=== PATIENT | male | born 1960 | race Caucasian/White ===

== ENCOUNTER 2020-07-31 18:47 | Emergency (ER) | payer MEDICARE, OTHER ==
[~2020-07-31] VITALS: Ht 165.1 cm; Wt 65.0 kg
[~2020-07-31 18:47] MED LIST: BACL-141 PO; CLOP75TA33 PO; DOCU-138 PO; FOLI-43 PO; HYDR-4134 PO; LABE100T5 PO; LACT10SO7 PO; LIP40 PO; MORP15TA67 PO; NIFE30TA94 PO; PANT40TA51 PO; TAMS0.4C31 PO
[2020-07-31] MEDS ORDERED: MORPHINE SULFATE 4 MG/ML CPJ (NOT FOR IM USE) IV STA (19:17)
[2020-07-31] MEDS ORDERED: ONDANSETRON HCL 4MG/2ML INJ IV STA (19:17)
[2020-07-31 20:08] LABS: CHLORIDE 97 mEq/L (98-107)
[2020-07-31 20:11] LABS: INR 1.2; PROTHROMBIN TIME 12.8 sec (9.6-11.0)
[2020-07-31 20:14] LABS: HEMATOCRIT. 45.6 % (42.0-52.0); HEMOGLOBIN. 15.5 g/dL (14.0-18.0); MEAN CORPUSCULAR VOLUME 96.9 fL (80.0-94.0); MEAN PLATELET VOLUME 8.5 fl (7.4-10.4); PLATELET 87 x1000/uL (130-400); RED CELL DISTRIBUTION WIDTH 12.5 % (11.6-14.6)
[2020-07-31 20:53] LABS: PLATELET ESTIMATE DECREASED
[2020-07-31] MEDS ORDERED: SODIUM CHLORIDE 0.9% 1,000 ML IV ONE (22:15)
[2020-08-01 00:17] VITALS: BP 129/90
== END 2020-08-01 00:22 | disposition home or self-care (01) ==
LOC: ER 18:47
DX: R51.9 Headache, unspecified (principal); E86.0 Dehydration; K70.10 Alcoholic hepatitis without ascites; F10.20 Alcohol dependence, uncomplicated; Y90.9 Presence of alcohol in blood, level not specified
CPT/HCPCS: 36415; 70450; 80053; 85025; 85610; 93005; 96361; 96374; 96375; 99285; J2270; J2405; J7030

== ENCOUNTER 2023-04-12 03:57 | Inpatient (IN) | payer MEDICARE, MEDICAID ==
[~2023-04-12] VITALS: Ht 175.3 cm; Wt 77.1 kg
[2023-04-12] VITALS (9 sets, daily range): BP systolic 101–120; BP diastolic 61–72; PULSE 72–98; RESP 18–20; TEMP 97.7–98.5; O2SAT 96
[~2023-04-12 03:57] MED LIST changes: +FINA5TAB11 PO; -LABE100T5 PO; +LABE100T9 PO; +MIRA50TA PO; +NIFE-71 PO; -NIFE30TA94 PO
[2023-04-12 05:28] LABS: BASOPHILS % 1.1 % (0.0-2.0); EOSINOPHILS % 1.7 % (0.0-5.0); HEMATOCRIT. 46.5 % (42.0-52.0); HEMOGLOBIN. 16.4 g/dL (14.0-18.0); LYMPHOCYTES % 23.9 % (20.0-50.0); MEAN CORPUSCULAR HGB CONC 35.2 g/dL (31.0-37.0); MEAN CORPUSCULAR VOLUME 93.8 fL (80.0-94.0); MEAN PLATELET VOLUME 7.2 fl (7.4-10.4); MONOCYTES % 8.9 % (2.0-8.0); NEUTROPHILS % 64.4 % (40.0-76.0); PLATELET 132 x1000/uL (130-400); RED BLOOD CELL COUNT 4.96 mill/uL (4.7-6.1); RED CELL DISTRIBUTION WIDTH 13.5 % (11.6-14.6); WHITE BLOOD COUNT 8.2 x1000/uL (4.5-11.0)
[2023-04-12 05:29] LABS: CHLORIDE 102 mEq/L (98-107); INDEX HEMOLYSI 1 (1-3); INDEX ICTERIC 2 (1-4); INDEX LIPEMIC 1 (1-3); SODIUM 137 mEq/L (136-145)
[2023-04-12 05:40] LABS: ALANINE AMINOTRANSFERASE 16 IU/L (13-61); ALBUMIN 3.8 g/dL (3.4-5.0); ASPARTATE AMINOTRANSFERASE 19 IU/L (15-37); BILIRUBIN TOTAL 2.8 mg/dL (0.1-1.0); CALCIUM 9.2 mg/dL (8.5-10.1); CARBON DIOXIDE 29 mEq/L (21-32); ETHANOL BLOOD < 10 mg/dL (<10); GLUCOSE 122 mg/dL (70-105); NT PRO B-TYPE NATRIURETIC PEP 1147 pg/mL (5-125); PROTEIN TOTAL 8.7 g/dL (6.0-8.3); TROPONIN I HIGH SENSITIVITY 17 ng/L (<78); UREA NITROGEN BLOOD 13 mg/dL (7-21)
[2023-04-12 05:56] LABS: POTASSIUM 2.6 mEq/L (3.5-5.1)
[2023-04-12] MEDS ORDERED: POTASSIUM CHLORIDE 20MEQ/PACKET PO NR (06:00)
[2023-04-12] MEDS ORDERED: ONDANSETRON HCL 4MG/2ML INJ IV PRN (11:30)
[2023-04-12] MEDS ORDERED: LORAZEPAM 0.5MG TABLET PO PRN (11:30)
[2023-04-12] MEDS ORDERED: ENOXAPARIN 40MG/0.4ML SYR SUBCUT SCH ×2 (11:30→11:51)
[2023-04-12] MEDS ORDERED: IPRATROPIUM/ALBUTEROL 0.5-3(2.5)MG/3ML NEB HHN PRN (11:30)
[2023-04-12] MEDS ORDERED: CLONIDINE 0.1MG TABLET PO PRN (11:30)
[2023-04-12] MEDS ORDERED: ACETAMINOPHEN 325MG TABLET PO PRN ×2 (11:30)
[2023-04-12] MEDS ORDERED: DOCUSATE SODIUM 100MG CAPSULE PO PRN (11:30)
[2023-04-12] MEDS ORDERED: DEXTROSE 50% WATER 50ML SYRINGE IV PRN (12:30)
[2023-04-12] MEDS ORDERED: NALOXONE HCL 0.4MG/ML VIAL IV PRN (13:00)
[2023-04-12 13:42] LABS: PHOSPHORUS 3.3 mg/dL (2.5-4.9); T4 FREE 1.62 ng/dL (0.76-1.46); THYROID STIMULATING HORMONE 3.4 uIU/mL (0.36-3.74)
[2023-04-12] MEDS ORDERED: ENOXAPARIN 80MG/0.8ML SYR SUBCUT NR (14:00)
[2023-04-12] MEDS: FUROSEMIDE 40MG/4ML VIAL IVP SCH (15:08)
[2023-04-12] MEDS: TAMSULOSIN HCL 0.4MG SR CAPSULE PO SCH (15:09)
[2023-04-12] MEDS: BETHANECHOL CHLORIDE 25 MG TABLET PO SCH (15:13)
[2023-04-12] MEDS ORDERED: METOCLOPRAMIDE HCL 10MG/2ML VIAL IV PRN (15:15)
[2023-04-12] MEDS ORDERED: MEGE40TA5 GT (15:41)
[2023-04-12] MEDS ORDERED: FURO20TA4 PO (15:41)
[2023-04-12] MEDS ORDERED: RIFA550T PO (15:41)
[2023-04-12] MEDS ORDERED: CHOL2000 (15:41)
[2023-04-12 16:29] LABS: INR 1.2; PROTHROMBIN TIME 12.8 sec (9.6-11.0)
[2023-04-12] MEDS ORDERED: *PATIENT'S OWN MEDICATION STORAGE XX SCH (16:30)
[2023-04-12] MEDS: BLOOD SUGAR DIAGNOSTIC STRIP TEST SCH ×2 (17:10→20:50)
[2023-04-12] MEDS: ATORVASTATIN CALCIUM 20MG TABLET PO SCH (21:53)
[2023-04-12] MEDS: ALPRAZOLAM 0.25 MG TABLET PO PRN (23:30)
[2023-04-13 04:00] VITALS: BP 120/79; PULSE 90; RESP 18; TEMP 97.9
[2023-04-13] MEDS: ENOXAPARIN 80MG/0.8ML SYR SUBCUT SCH ×2 (04:44→18:00)
[2023-04-13] MEDS: BLOOD SUGAR DIAGNOSTIC STRIP TEST SCH ×4 (07:10→21:11)
[2023-04-13 08:00] VITALS: BP 114/62; PULSE 78; RESP 18; TEMP 97.9
[2023-04-13] MEDS ORDERED: FUROSEMIDE 20MG TABLET PO SCH (09:00)
[2023-04-13] MEDS: TAMSULOSIN HCL 0.4MG SR CAPSULE PO SCH (09:43)
[2023-04-13] MEDS: OXYCODONE HCL 10MG TABLET SR 12HR PO SCH (09:44)
[2023-04-13] MEDS: BETHANECHOL CHLORIDE 25 MG TABLET PO SCH (09:44)
[2023-04-13] MEDS: FUROSEMIDE 40MG/4ML VIAL IVP SCH (09:53)
[2023-04-13] MEDS: ALPRAZOLAM 0.25 MG TABLET PO PRN (11:23)
[2023-04-13 12:00] VITALS: BP 143/75; PULSE 52; RESP 18; TEMP 97.8
[2023-04-13] MEDS ORDERED: [UNRECOGNIZED DRUG - OTHER] PO (13:19)
[2023-04-13] MEDS ORDERED: T (13:19)
[2023-04-13 16:00] VITALS: BP 153/85; PULSE 91; RESP 18; TEMP 98.1
[2023-04-13] MEDS: SPIRONOLACTONE 25MG TABLET PO SCH (16:07)
[2023-04-13] MEDS: GEMTESA 75 MG PO SCH (16:07)
[2023-04-13 16:42] LABS: EOSINOPHILS % 2.4 % (0.0-5.0); HEMATOCRIT. 40.7 % (42.0-52.0); HEMOGLOBIN. 13.9 g/dL (14.0-18.0); LYMPHOCYTES % 27.1 % (20.0-50.0); MEAN CORPUSCULAR HEMOGLOBIN 32.9 pg (28.0-32.0); MEAN CORPUSCULAR HGB CONC 34.2 g/dL (31.0-37.0); MEAN CORPUSCULAR VOLUME 96.3 fL (80.0-94.0); MEAN PLATELET VOLUME 7.8 fl (7.4-10.4); NEUTROPHILS % 60.5 % (40.0-76.0); PLATELET 100 x1000/uL (130-400); RED BLOOD CELL COUNT 4.22 mill/uL (4.7-6.1); RED CELL DISTRIBUTION WIDTH 13.2 % (11.6-14.6); WHITE BLOOD COUNT 4.9 x1000/uL (4.5-11.0)
[2023-04-13 16:56] LABS: CHLORIDE 106 mEq/L (98-107); INDEX HEMOLYSI 1 (1-3); INDEX ICTERIC 1 (1-4); INDEX LIPEMIC 1 (1-3); POTASSIUM 3.2 mEq/L (3.5-5.1); SODIUM 137 mEq/L (136-145)
[2023-04-13 17:06] LABS: ALANINE AMINOTRANSFERASE 14 IU/L (13-61); ALBUMIN 3.2 g/dL (3.4-5.0); ASPARTATE AMINOTRANSFERASE 16 IU/L (15-37); BILIRUBIN TOTAL 1.8 mg/dL (0.1-1.0); CALCIUM 8.2 mg/dL (8.5-10.1); CARBON DIOXIDE 23 mEq/L (21-32); CHOLESTEROL 112 mg/dL (<200); CREATININE 0.8 mg/dL (0.6-1.3); GLUCOSE 100 mg/dL (70-105); HDL CHOLESTEROL 40 mg/dL (40-59); LDL CHOLESTEROL 77 mg/dL (5-100); PROTEIN TOTAL 7.2 g/dL (6.0-8.3); TRIGLYCERIDE 50 mg/dL (0-150); UREA NITROGEN BLOOD 24 mg/dL (7-21)
[2023-04-13 20:00] VITALS: BP 155/76; PULSE 62; RESP 20; TEMP 97.8
[2023-04-13 20:40] VITALS: BP 155/76; PULSE 62; RESP 20; TEMP 97.8
[2023-04-13] MEDS: ATORVASTATIN CALCIUM 20MG TABLET PO SCH (21:11)
[2023-04-14] MEDS: ENOXAPARIN 80MG/0.8ML SYR SUBCUT SCH ×2 (06:00→17:51)
[2023-04-14] MEDS: BLOOD SUGAR DIAGNOSTIC STRIP TEST SCH ×2 (06:41→12:10)
[2023-04-14 08:00] VITALS: BP 149/65; PULSE 48; RESP 20; TEMP 98.2
[2023-04-14] MEDS: FUROSEMIDE 40MG/4ML VIAL IVP SCH (10:07)
[2023-04-14] MEDS: GEMTESA 75 MG PO SCH (10:07)
[2023-04-14] MEDS: SPIRONOLACTONE 25MG TABLET PO SCH (10:08)
[2023-04-14] MEDS: OXYCODONE HCL 10MG TABLET SR 12HR PO SCH (10:08)
[2023-04-14] MEDS: TAMSULOSIN HCL 0.4MG SR CAPSULE PO SCH (10:09)
[2023-04-14] MEDS: BETHANECHOL CHLORIDE 25 MG TABLET PO SCH (10:09)
[2023-04-14] MEDS ORDERED: POTASSIUM CHLORIDE 20MEQ TABLET SR PO NR (11:30)
[2023-04-14 12:00] VITALS: BP 153/77; PULSE 61; RESP 20; TEMP 97.6
[2023-04-14] MEDS: ALPRAZOLAM 0.25 MG TABLET PO PRN (12:06)
[2023-04-14] MEDS: NIFEDIPINE XL 30MG TAB PO SCH (15:15)
[2023-04-14 16:00] VITALS: BP 145/80; PULSE 66; RESP 20; TEMP 98
[2023-04-14 16:39] LABS: BASOPHILS % 0.6 % (0.0-2.0); EOSINOPHILS % 1.7 % (0.0-5.0); HEMOGLOBIN. 14.3 g/dL (14.0-18.0); LYMPHOCYTES % 22.9 % (20.0-50.0); MEAN CORPUSCULAR HEMOGLOBIN 32.5 pg (28.0-32.0); MEAN CORPUSCULAR VOLUME 95.7 fL (80.0-94.0); MEAN PLATELET VOLUME 7.8 fl (7.4-10.4); MONOCYTES % 9.2 % (2.0-8.0); NEUTROPHILS % 65.6 % (40.0-76.0); PLATELET 103 x1000/uL (130-400); RED BLOOD CELL COUNT 4.39 mill/uL (4.7-6.1); RED CELL DISTRIBUTION WIDTH 12.9 % (11.6-14.6); WHITE BLOOD COUNT 5.5 x1000/uL (4.5-11.0)
[2023-04-14 17:30] LABS: CHLORIDE 107 mEq/L (98-107); INDEX HEMOLYSI 1 (1-3); INDEX ICTERIC 2 (1-4); INDEX LIPEMIC 1 (1-3); POTASSIUM 3.3 mEq/L (3.5-5.1); SODIUM 138 mEq/L (136-145)
[2023-04-14 17:37] LABS: ALANINE AMINOTRANSFERASE 16 IU/L (13-61); ALBUMIN 3.3 g/dL (3.4-5.0); ASPARTATE AMINOTRANSFERASE 22 IU/L (15-37); BILIRUBIN TOTAL 2.9 mg/dL (0.1-1.0); CALCIUM 8.6 mg/dL (8.5-10.1); CARBON DIOXIDE 23 mEq/L (21-32); CREATININE 0.7 mg/dL (0.6-1.3); GLUCOSE 121 mg/dL (70-105); PHOSPHORUS 2.9 mg/dL (2.5-4.9); PROTEIN TOTAL 7.6 g/dL (6.0-8.3); UREA NITROGEN BLOOD 18 mg/dL (7-21)
[2023-04-14 20:00] VITALS: BP 153/84; PULSE 59; RESP 20; TEMP 97.9
[2023-04-14] MEDS: ATORVASTATIN CALCIUM 20MG TABLET PO SCH (20:37)
[2023-04-15] VITALS: BP 155/84; PULSE 60; RESP 20; TEMP 98.1
[2023-04-15] MEDS: ALPRAZOLAM 0.25 MG TABLET PO PRN (00:36)
[2023-04-15 04:00] VITALS: BP 145/86; PULSE 62; RESP 18; TEMP 97.6
[2023-04-15] MEDS: ENOXAPARIN 80MG/0.8ML SYR SUBCUT SCH (05:46)
[2023-04-15 07:22] LABS: MEAN CORPUSCULAR HEMOGLOBIN 33.5 pg (28.0-32.0); MEAN CORPUSCULAR VOLUME 95.6 fL (80.0-94.0); PLATELET 84 x1000/uL (130-400); RED BLOOD CELL COUNT 4.19 mill/uL (4.7-6.1); RED CELL DISTRIBUTION WIDTH 13.4 % (11.6-14.6); WHITE BLOOD COUNT 4.7 x1000/uL (4.5-11.0)
[2023-04-15 07:24] LABS: CHLORIDE 106 mEq/L (98-107); INDEX HEMOLYSI 1 (1-3); INDEX ICTERIC 1 (1-4); INDEX LIPEMIC 1 (1-3); POTASSIUM 3.8 mEq/L (3.5-5.1); SODIUM 138 mEq/L (136-145)
[2023-04-15 07:32] LABS: ALANINE AMINOTRANSFERASE 15 IU/L (13-61); ALBUMIN 3.2 g/dL (3.4-5.0); ASPARTATE AMINOTRANSFERASE 20 IU/L (15-37); BILIRUBIN TOTAL 2.1 mg/dL (0.1-1.0); CALCIUM 8.5 mg/dL (8.5-10.1); CARBON DIOXIDE 25 mEq/L (21-32); CREATININE 0.7 mg/dL (0.6-1.3); GLUCOSE 82 mg/dL (70-105); PHOSPHORUS 4.2 mg/dL (2.5-4.9); PROTEIN TOTAL 7.2 g/dL (6.0-8.3); UREA NITROGEN BLOOD 17 mg/dL (7-21)
[2023-04-15 08:00] VITALS: BP 154/82; PULSE 62; RESP 18; TEMP 97.6
[2023-04-15] MEDS ORDERED: SERTRALINE HCL 25MG TABLET PO SCH (09:00)
[2023-04-15] MEDS: BETHANECHOL CHLORIDE 25 MG TABLET PO SCH (09:24)
[2023-04-15] MEDS: OXYCODONE HCL 10MG TABLET SR 12HR PO SCH (09:25)
[2023-04-15] MEDS: NIFEDIPINE XL 30MG TAB PO SCH (09:26)
[2023-04-15] MEDS: SPIRONOLACTONE 25MG TABLET PO SCH (09:26)
[2023-04-15] MEDS: TAMSULOSIN HCL 0.4MG SR CAPSULE PO SCH (09:27)
[2023-04-15] MEDS: FUROSEMIDE 40MG/4ML VIAL IVP SCH (09:32)
[2023-04-15 10:56] VITALS: BP 154/82; PULSE 62; TEMP 97.6; O2SAT 94
[2023-04-15 12:00] VITALS: BP 145/76; PULSE 65; RESP 18; TEMP 97.7
[2023-04-15 16:00] VITALS: BP 152/80; PULSE 64; RESP 20; TEMP 97.6
== END 2023-04-15 18:00 | disposition home or self-care (01) | DRG 917 ==
LOC: ER 04:27 → 8WST 07:44 → EDBEDREQ 07:47 → ENRESERV 08:56
PROVIDERS: ADMIT Internal Medicine; ATTEND Internal Medicine
DX: T46.1X1A Poisoning by calcium-channel blockers, accidental (unintentional), initial encounter (principal); I50.31 Acute diastolic (congestive) heart failure; J96.00 Acute respiratory failure, unspecified whether with hypoxia or hypercapnia; I69.351 Hemiplegia and hemiparesis following cerebral infarction affecting right dominant side; C22.9 Malignant neoplasm of liver, not specified as primary or secondary; I48.91 Unspecified atrial fibrillation; T50.901A Poisoning by unspecified drugs, medicaments and biological substances, accidental (unintentional), initial encounter; E05.90 Thyrotoxicosis, unspecified without thyrotoxic crisis or storm; E11.9 Type 2 diabetes mellitus without complications; E78.5 Hyperlipidemia, unspecified; E87.6 Hypokalemia; I11.0 Hypertensive heart disease with heart failure; I16.0 Hypertensive urgency; F32.9 Major depressive disorder, single episode, unspecified; D69.6 Thrombocytopenia, unspecified; T44.7X1A Poisoning by beta-adrenoreceptor antagonists, accidental (unintentional), initial encounter; E80.6 Other disorders of bilirubin metabolism; Z85.05 Personal history of malignant neoplasm of liver; Z85.118 Personal history of other malignant neoplasm of bronchus and lung; Z85.51 Personal history of malignant neoplasm of bladder; Z91.041 Radiographic dye allergy status; Z79.899 Other long term (current) drug therapy; Z79.02 Long term (current) use of antithrombotics/antiplatelets; Y92.89 Other specified places as the place of occurrence of the external cause
CPT/HCPCS: 36415; 71045; 76700; 80053; 80061; 80320; 82962; 83036; 83605; 83735; 83880; 84100; 84439; 84443; 84484; 85025; 85027; 87340; 93005; 93306; 93970; 99285; J1650; J1940; G0480

== ENCOUNTER 2024-01-30 21:40 | Inpatient (IN) | payer MEDICARE, MEDICAID ==
[~2024-01-30] VITALS: Ht 170.2 cm; Wt 68.7 kg
[~2024-01-30 21:40] MED LIST changes: +ALPR2TAB2 PO; +APIX5TAB MT; -BACL-141 PO; +CHOL2000; +DILT120C88 PO; +FURO20TA4 PO; -HYDR-4134 PO; -LABE100T9 PO; -MIRA50TA PO; -NIFE-71 PO; +RIFA550T PO; +[UNRECOGNIZED DRUG - OTHER] PO
[2024-01-30 22:05] VITALS: BP 157/79; PULSE 70; RESP 18; TEMP 36.72516; TEMP 36.7516; O2SAT 98
[2024-01-30] MEDS ORDERED: CLONIDINE 0.1MG TABLET PO PRN (22:45)
[2024-01-30] MEDS ORDERED: NON FORMULARY MED PO SCH (22:45)
[2024-01-30] MEDS ORDERED: NALOXONE HCL 0.4MG/ML VIAL IV PRN (23:00)
[2024-01-31 06:58] LABS: CHLORIDE 108 mEq/L (98-107); POTASSIUM 3.3 mEq/L (3.5-5.1); SODIUM 140 mEq/L (136-145)
[2024-01-31 07:01] LABS: CALCIUM 9.2 mg/dL (8.7-10.4); CARBON DIOXIDE 21 mEq/L (21-32)
[2024-01-31 07:06] LABS: CREATININE 0.5 mg/dL (0.6-1.3); GLUCOSE 87 mg/dL (70-105); UREA NITROGEN BLOOD 17 mg/dL (9-23)
[2024-01-31 07:07] LABS: ALANINE AMINOTRANSFERASE 14 IU/L (10-49)
[2024-01-31 07:08] LABS: ASPARTATE AMINOTRANSFERASE 30 IU/L (<34); PREALBUMIN 7.1 mg/dl (10.0-40.0)
[2024-01-31 07:17] LABS: BASOPHILS % 0.8 % (0.0-2.0); EOSINOPHILS % 3.1 % (0.0-5.0); HEMATOCRIT. 38.2 % (42.0-52.0); HEMOGLOBIN. 13.4 g/dL (14.0-18.0); LYMPHOCYTES % 23.3 % (20.0-50.0); MEAN CORPUSCULAR HEMOGLOBIN 33.7 pg (28.0-32.0); MEAN CORPUSCULAR HGB CONC 35.2 g/dL (31.0-37.0); MEAN CORPUSCULAR VOLUME 95.7 fL (80.0-94.0); MEAN PLATELET VOLUME 8.6 fl (7.4-10.4); MONOCYTES % 7.1 % (2.0-8.0); NEUTROPHILS % 65.7 % (40.0-76.0); PLATELET 75 x1000/uL (130-400); RED BLOOD CELL COUNT 3.99 mill/uL (4.7-6.1); RED CELL DISTRIBUTION WIDTH 13.3 % (11.6-14.6); WHITE BLOOD COUNT 4.5 x1000/uL (4.5-11.0)
[2024-01-31 07:22] LABS: HEPATITIS B SURFACE ANTIGEN NEGATIVE (Negative)
[2024-01-31 07:43] LABS: HEPATITIS C AB NON REACTIVE (Neg) (Negative)
[2024-01-31 08:00] VITALS: BP 144/82; PULSE 77; RESP 20; TEMP 36.72516; O2SAT 99
[2024-01-31] MEDS: BISACODYL 5MG TABLET PO SCH (08:14)
[2024-01-31] MEDS: POTASSIUM CHLORIDE 20MEQ TABLET SR PO SCH (08:15)
[2024-01-31] MEDS: PANTOPRAZOLE 40MG DR TABLET PO SCH (08:15)
[2024-01-31] MEDS: ASPIRIN 81MG EC TABLET PO SCH (08:15)
[2024-01-31] MEDS: AMLODIPINE 5MG TABLET PO SCH (08:15)
[2024-01-31] MEDS: CLOPIDOGREL 75MG TABLET PO SCH (08:15)
[2024-01-31] MEDS: LORAZEPAM 1MG TABLET PO PRN (14:13)
[2024-01-31] MEDS ORDERED: PNEUMOCOCCAL 23-VAL P-SAC VAC 0.5ML IM ONE (15:00)
[2024-01-31] MEDS: OCTREOTIDE 1,000 MCG in SODIUM CHLORIDE 0.9% 98 ML IV SCH (15:30)
[2024-01-31] MEDS: LORAZEPAM 2MG/ML INJ IV NR (16:36)
[2024-01-31 20:00] VITALS: BP 135/67; PULSE 88; RESP 20; TEMP 36.89184; O2SAT 98
[2024-01-31] MEDS: ATORVASTATIN CALCIUM 10MG TABLET PO SCH (22:27)
[2024-01-31] MEDS: PANTOPRAZOLE SODIUM 40 MG/VIAL IV SCH (22:28)
[2024-02-01 08:00] VITALS: BP 155/83; PULSE 87; RESP 20; TEMP 36.89184; O2SAT 95
[2024-02-01 09:19] LABS: AMMONIA 49 uMol/L (<32)
[2024-02-01 09:21] LABS: FERRITIN 269 ng/mL (22-322)
[2024-02-01 09:22] LABS: FOLIC ACID (FOLATE) SERUM > 20.00 ng/mL (>5.38)
[2024-02-01 09:23] LABS: INR 1.2; PROTHROMBIN TIME 13.4 sec (9.6-11.0)
[2024-02-01 09:24] LABS: VITAMIN B12 SERUM 967 pg/mL (211-911)
[2024-02-01 09:25] LABS: BASOPHILS % 0.9 % (0.0-2.0); HEMATOCRIT. 41.1 % (42.0-52.0); HEMOGLOBIN. 14.1 g/dL (14.0-18.0); LYMPHOCYTES % 16.5 % (20.0-50.0); MEAN CORPUSCULAR HEMOGLOBIN 33.2 pg (28.0-32.0); MEAN CORPUSCULAR HGB CONC 34.3 g/dL (31.0-37.0); MEAN PLATELET VOLUME 9.2 fl (7.4-10.4); NEUTROPHILS % 73.6 % (40.0-76.0); PLATELET 81 x1000/uL (130-400); RED BLOOD CELL COUNT 4.24 mill/uL (4.7-6.1); RED CELL DISTRIBUTION WIDTH 13.5 % (11.6-14.6); WHITE BLOOD COUNT 5.7 x1000/uL (4.5-11.0)
[2024-02-01] MEDS: PANTOPRAZOLE 40MG DR TABLET PO SCH (09:48)
[2024-02-01 09:58] LABS: CHLORIDE 107 mEq/L (98-107); POTASSIUM 3.5 mEq/L (3.5-5.1); SODIUM 140 mEq/L (136-145)
[2024-02-01 09:59] LABS: CALCIUM 9.8 mg/dL (8.7-10.4); CARBON DIOXIDE 20 mEq/L (21-32)
[2024-02-01 10:04] LABS: CREATININE 0.6 mg/dL (0.6-1.3); GLUCOSE 104 mg/dL (70-105); IRON 111 ug/dL (65-175)
[2024-02-01 10:05] LABS: UREA NITROGEN BLOOD 14 mg/dL (9-23)
[2024-02-01 10:06] LABS: ALANINE AMINOTRANSFERASE 17 IU/L (10-49); ALBUMIN 4.5 g/dL (3.2-4.8); ASPARTATE AMINOTRANSFERASE 40 IU/L (<34)
[2024-02-01 10:07] LABS: BILIRUBIN TOTAL 5.3 mg/dL (0.1-1.0); PROTEIN TOTAL 7.8 g/dL (6.0-8.3); TOTAL IRON BINDING CAPACITY 203 ug/dl (250-425)
[2024-02-01 10:09] LABS: THYROID STIMULATING HORMONE 0.46 uIU/mL (0.55-4.78)
[2024-02-01] MEDS: LACTULOSE 20G/30ML UDC PO SCH (13:41)
[2024-02-01 20:00] VITALS: BP 150/83; PULSE 88; RESP 20; TEMP 36.6696; O2SAT 95
[2024-02-02] MEDS ORDERED: *PATIENT'S OWN MEDICATION STORAGE XX SCH (01:00)
[2024-02-02 06:33] LABS: AMMONIA 37 uMol/L (<32)
[2024-02-02 07:59] VITALS: BP 125/68; PULSE 73; RESP 18; TEMP 36.33624; O2SAT 100
[2024-02-02 20:00] VITALS: BP 107/81; PULSE 86; RESP 18; TEMP 36.61404; O2SAT 99
[2024-02-03 06:15] LABS: AMMONIA 41 uMol/L (<32)
[2024-02-03 06:20] LABS: CARBON DIOXIDE 23 mEq/L (21-32); CHLORIDE 108 mEq/L (98-107); POTASSIUM 3.7 mEq/L (3.5-5.1); SODIUM 138 mEq/L (136-145)
[2024-02-03 06:25] LABS: EOSINOPHILS % 6.2 % (0.0-5.0); HEMATOCRIT. 38.6 % (42.0-52.0); HEMOGLOBIN. 13.3 g/dL (14.0-18.0); LYMPHOCYTES % 26.3 % (20.0-50.0); MEAN CORPUSCULAR HEMOGLOBIN 33.4 pg (28.0-32.0); MEAN CORPUSCULAR HGB CONC 34.4 g/dL (31.0-37.0); MEAN CORPUSCULAR VOLUME 96.9 fL (80.0-94.0); MEAN PLATELET VOLUME 8.8 fl (7.4-10.4); NEUTROPHILS % 58.5 % (40.0-76.0); PLATELET 82 x1000/uL (130-400); RED BLOOD CELL COUNT 3.98 mill/uL (4.7-6.1); RED CELL DISTRIBUTION WIDTH 13.6 % (11.6-14.6)
[2024-02-03 06:26] LABS: CREATININE 0.6 mg/dL (0.6-1.3)
[2024-02-03 06:27] LABS: GLUCOSE 85 mg/dL (70-105); UREA NITROGEN BLOOD 16 mg/dL (9-23)
[2024-02-03 08:00] VITALS: BP 115/74; PULSE 77; RESP 20; TEMP 36.72516; O2SAT 98
[2024-02-03 20:00] VITALS: BP 112/70; PULSE 83; RESP 18; TEMP 36.28068; O2SAT 99
[2024-02-03] MEDS: HYDROCODONE/ACETAMINOPHEN 5/325MG TABLET PO PRN (22:41)
[2024-02-04 08:00] VITALS: BP 133/66; PULSE 64; RESP 17; TEMP 36.28068; O2SAT 99
[2024-02-04 20:00] VITALS: BP 110/63; PULSE 79; RESP 18; TEMP 36.61404; O2SAT 96
[2024-02-05 06:23] LABS: CHLORIDE 109 mEq/L (98-107); POTASSIUM 3.5 mEq/L (3.5-5.1); SODIUM 140 mEq/L (136-145)
[2024-02-05 06:24] LABS: CARBON DIOXIDE 23 mEq/L (21-32)
[2024-02-05 06:25] LABS: INR 1.2; PROTHROMBIN TIME 13.3 sec (9.6-11.0)
[2024-02-05 06:29] LABS: CREATININE 0.5 mg/dL (0.6-1.3); GLUCOSE 86 mg/dL (70-105)
[2024-02-05 06:30] LABS: AMMONIA 36 uMol/L (<32); UREA NITROGEN BLOOD 11 mg/dL (9-23)
[2024-02-05 06:31] LABS: ALANINE AMINOTRANSFERASE 15 IU/L (10-49); ALBUMIN 3.6 g/dL (3.2-4.8); ASPARTATE AMINOTRANSFERASE 29 IU/L (<34)
[2024-02-05 06:32] LABS: BILIRUBIN TOTAL 1.8 mg/dL (0.1-1.0); PROTEIN TOTAL 6.6 g/dL (6.0-8.3)
[2024-02-05 06:53] LABS: BASOPHILS % 1.1 % (0.0-2.0); EOSINOPHILS % 4.8 % (0.0-5.0); HEMATOCRIT. 35.9 % (42.0-52.0); HEMOGLOBIN. 12.6 g/dL (14.0-18.0); LYMPHOCYTES % 30.4 % (20.0-50.0); MEAN CORPUSCULAR HEMOGLOBIN 33.7 pg (28.0-32.0); MEAN CORPUSCULAR HGB CONC 35.2 g/dL (31.0-37.0); MEAN CORPUSCULAR VOLUME 95.9 fL (80.0-94.0); MEAN PLATELET VOLUME 9.2 fl (7.4-10.4); MONOCYTES % 7.8 % (2.0-8.0); NEUTROPHILS % 55.9 % (40.0-76.0); PLATELET 79 x1000/uL (130-400); RED BLOOD CELL COUNT 3.74 mill/uL (4.7-6.1); RED CELL DISTRIBUTION WIDTH 13.6 % (11.6-14.6); WHITE BLOOD COUNT 3.8 x1000/uL (4.5-11.0)
[2024-02-05 08:00] VITALS: BP 127/63; PULSE 95; RESP 18; TEMP 36.44736; O2SAT 95
[2024-02-05 20:00] VITALS: BP 106/70; PULSE 82; RESP 18; TEMP 37.05852; O2SAT 98
[2024-02-05] MEDS: QUETIAPINE FUMARATE 25MG TABLET PO SCH (21:55)
[2024-02-06 05:42] LABS: CHLORIDE 110 mEq/L (98-107); POTASSIUM 3.4 mEq/L (3.5-5.1); SODIUM 141 mEq/L (136-145)
[2024-02-06 05:43] LABS: CALCIUM 8.7 mg/dL (8.7-10.4); CARBON DIOXIDE 24 mEq/L (21-32)
[2024-02-06 05:48] LABS: CREATININE 0.6 mg/dL (0.6-1.3); GLUCOSE 79 mg/dL (70-105); UREA NITROGEN BLOOD 11 mg/dL (9-23)
[2024-02-06 05:49] LABS: AMMONIA 46 uMol/L (<32)
[2024-02-06 05:50] LABS: ALANINE AMINOTRANSFERASE 15 IU/L (10-49); ALBUMIN 3.5 g/dL (3.2-4.8); ASPARTATE AMINOTRANSFERASE 28 IU/L (<34); BILIRUBIN TOTAL 1.7 mg/dL (0.1-1.0); PROTEIN TOTAL 6.4 g/dL (6.0-8.3)
[2024-02-06 05:55] LABS: INR 1.2; PROTHROMBIN TIME 13.5 sec (9.6-11.0)
[2024-02-06 06:03] LABS: BASOPHILS % 0.9 % (0.0-2.0); EOSINOPHILS % 6.8 % (0.0-5.0); HEMOGLOBIN. 12.2 g/dL (14.0-18.0); LYMPHOCYTES % 33.4 % (20.0-50.0); MEAN CORPUSCULAR HEMOGLOBIN 34.2 pg (28.0-32.0); MEAN CORPUSCULAR HGB CONC 35.9 g/dL (31.0-37.0); MEAN CORPUSCULAR VOLUME 95.3 fL (80.0-94.0); MONOCYTES % 6.9 % (2.0-8.0); PLATELET 77 x1000/uL (130-400); RED BLOOD CELL COUNT 3.57 mill/uL (4.7-6.1); RED CELL DISTRIBUTION WIDTH 13.4 % (11.6-14.6); WHITE BLOOD COUNT 3.6 x1000/uL (4.5-11.0)
[2024-02-06 07:23] LABS: CLARITY URINE CLEAR (CLEAR); COLOR URINE YELLOW (YELLOW); GLUCOSE URINE NEGATIVE (NEGATIVE); KETONES URINE NEGATIVE (NEGATIVE); LEUKOCYTE ESTERASE URINE NEGATIVE (NEGATIVE); NITRITE URINE NEGATIVE (NEGATIVE); OCCULT BLOOD URINE NEGATIVE (NEGATIVE); PROTEIN URINE NEGATIVE (NEGATIVE); SPECIFIC GRAVITY URINE 1.011 (1.005-1.030)
[2024-02-06 08:00] VITALS: BP 123/73; PULSE 70; RESP 18; TEMP 36.28068; O2SAT 98
[2024-02-06] MEDS: POTASSIUM CHLORIDE 20MEQ TABLET SR PO NR (09:00)
[2024-02-06 20:00] VITALS: BP 118/76; PULSE 86; RESP 18; TEMP 36.72516; O2SAT 99
[2024-02-06] MEDS: ACETAMINOPHEN 325MG TABLET PO PRN (21:03)
[2024-02-07 05:53] LABS: AMMONIA 95 uMol/L (<32)
[2024-02-07 06:15] LABS: CHLORIDE 111 mEq/L (98-107); POTASSIUM 3.6 mEq/L (3.5-5.1); SODIUM 143 mEq/L (136-145)
[2024-02-07 06:16] LABS: CARBON DIOXIDE 23 mEq/L (21-32)
[2024-02-07 06:20] LABS: BASOPHILS % 1.1 % (0.0-2.0); EOSINOPHILS % 4.6 % (0.0-5.0); HEMATOCRIT. 37.3 % (42.0-52.0); HEMOGLOBIN. 12.5 g/dL (14.0-18.0); LYMPHOCYTES % 23.2 % (20.0-50.0); MEAN CORPUSCULAR HEMOGLOBIN 32.5 pg (28.0-32.0); MEAN CORPUSCULAR HGB CONC 33.6 g/dL (31.0-37.0); MEAN CORPUSCULAR VOLUME 96.7 fL (80.0-94.0); MEAN PLATELET VOLUME 9.3 fl (7.4-10.4); MONOCYTES % 6.9 % (2.0-8.0); NEUTROPHILS % 64.2 % (40.0-76.0); PLATELET 81 x1000/uL (130-400); RED BLOOD CELL COUNT 3.85 mill/uL (4.7-6.1); RED CELL DISTRIBUTION WIDTH 13.7 % (11.6-14.6); WHITE BLOOD COUNT 4.7 x1000/uL (4.5-11.0)
[2024-02-07 06:21] LABS: CREATININE 0.6 mg/dL (0.6-1.3); GLUCOSE 88 mg/dL (70-105); UREA NITROGEN BLOOD 13 mg/dL (9-23)
[2024-02-07 08:00] VITALS: BP 112/66; PULSE 72; RESP 20; TEMP 36.78072; O2SAT 99
[2024-02-07] MEDS ORDERED: LACTULOSE 20G/30ML UDC PO SCH (14:00)
[2024-02-07 20:00] VITALS: BP 115/73; PULSE 90; RESP 16; TEMP 37.39188; O2SAT 98
[2024-02-08 08:00] VITALS: BP 114/71; PULSE 66; RESP 18; TEMP 36.78072; O2SAT 99
[2024-02-08 08:00] LABS: CHLORIDE 113 mEq/L (98-107); POTASSIUM 3.6 mEq/L (3.5-5.1); SODIUM 144 mEq/L (136-145)
[2024-02-08 08:01] LABS: CALCIUM 9.2 mg/dL (8.7-10.4); CARBON DIOXIDE 23 mEq/L (21-32)
[2024-02-08 08:03] LABS: BASOPHILS % 0.7 % (0.0-2.0); EOSINOPHILS % 5.5 % (0.0-5.0); HEMATOCRIT. 36.5 % (42.0-52.0); HEMOGLOBIN. 12.7 g/dL (14.0-18.0); LYMPHOCYTES % 26.9 % (20.0-50.0); MEAN CORPUSCULAR HEMOGLOBIN 33.8 pg (28.0-32.0); MEAN CORPUSCULAR HGB CONC 34.7 g/dL (31.0-37.0); MEAN CORPUSCULAR VOLUME 97.3 fL (80.0-94.0); MEAN PLATELET VOLUME 9.2 fl (7.4-10.4); MONOCYTES % 6.4 % (2.0-8.0); NEUTROPHILS % 60.5 % (40.0-76.0); PLATELET 80 x1000/uL (130-400); RED BLOOD CELL COUNT 3.75 mill/uL (4.7-6.1); RED CELL DISTRIBUTION WIDTH 13.5 % (11.6-14.6); WHITE BLOOD COUNT 4.7 x1000/uL (4.5-11.0)
[2024-02-08 08:06] LABS: CREATININE 0.6 mg/dL (0.6-1.3); GLUCOSE 90 mg/dL (70-105); UREA NITROGEN BLOOD 11 mg/dL (9-23)
[2024-02-08 08:07] LABS: ALANINE AMINOTRANSFERASE 22 IU/L (10-49)
[2024-02-08 08:08] LABS: ALBUMIN 3.6 g/dL (3.2-4.8); ASPARTATE AMINOTRANSFERASE 38 IU/L (<34); BILIRUBIN TOTAL 1.1 mg/dL (0.1-1.0); PROTEIN TOTAL 6.4 g/dL (6.0-8.3)
[2024-02-08 08:41] LABS: AMMONIA 63 uMol/L (<32)
[2024-02-08 20:00] VITALS: BP 115/66; PULSE 77; RESP 19; TEMP 36.89184; O2SAT 100
[2024-02-09 08:00] VITALS: BP 115/70; PULSE 80; RESP 20; TEMP 36.61404; O2SAT 99
[2024-02-09 20:00] VITALS: BP 126/75; PULSE 80; RESP 19; TEMP 38.00304; O2SAT 99
[2024-02-10 07:12] LABS: CALCIUM 8.8 mg/dL (8.7-10.4); CARBON DIOXIDE 21 mEq/L (21-32); CHLORIDE 114 mEq/L (98-107); POTASSIUM 3.4 mEq/L (3.5-5.1); SODIUM 143 mEq/L (136-145)
[2024-02-10 07:17] LABS: CREATININE 0.6 mg/dL (0.6-1.3)
[2024-02-10 07:18] LABS: GLUCOSE 84 mg/dL (70-105); UREA NITROGEN BLOOD 9 mg/dL (9-23)
[2024-02-10 08:00] VITALS: BP 121/68; PULSE 69; RESP 20; TEMP 37.00296; O2SAT 99
[2024-02-10 08:27] LABS: EOSINOPHILS % 5.9 % (0.0-5.0); HEMATOCRIT. 34.3 % (42.0-52.0); HEMOGLOBIN. 11.6 g/dL (14.0-18.0); LYMPHOCYTES % 28.3 % (20.0-50.0); MEAN CORPUSCULAR HGB CONC 33.8 g/dL (31.0-37.0); MEAN CORPUSCULAR VOLUME 97.6 fL (80.0-94.0); MONOCYTES % 7.5 % (2.0-8.0); NEUTROPHILS % 57.3 % (40.0-76.0); PLATELET 71 x1000/uL (130-400); RED BLOOD CELL COUNT 3.51 mill/uL (4.7-6.1); RED CELL DISTRIBUTION WIDTH 13.7 % (11.6-14.6); WHITE BLOOD COUNT 3.7 x1000/uL (4.5-11.0)
[2024-02-10 20:00] VITALS: BP 111/64; PULSE 71; RESP 18; TEMP 37.503
[2024-02-10] MEDS ORDERED: *PATIENT'S OWN MEDICATION STORAGE XX SCH (20:00)
[2024-02-11 08:00] VITALS: BP 99/73; PULSE 66; RESP 19; TEMP 36.44736; O2SAT 99
[2024-02-11 20:00] VITALS: BP 119/69; PULSE 76; RESP 17; TEMP 37.61412; O2SAT 100
[2024-02-12 07:17] LABS: CHLORIDE 113 mEq/L (98-107); POTASSIUM 3.3 mEq/L (3.5-5.1); SODIUM 143 mEq/L (136-145)
[2024-02-12 07:18] LABS: CALCIUM 9.2 mg/dL (8.7-10.4); CARBON DIOXIDE 22 mEq/L (21-32); EOSINOPHILS % 5.2 % (0.0-5.0); HEMOGLOBIN. 12.4 g/dL (14.0-18.0); LYMPHOCYTES % 29.7 % (20.0-50.0); MEAN CORPUSCULAR HEMOGLOBIN 33.8 pg (28.0-32.0); MEAN CORPUSCULAR HGB CONC 34.6 g/dL (31.0-37.0); MEAN CORPUSCULAR VOLUME 97.6 fL (80.0-94.0); MEAN PLATELET VOLUME 8.6 fl (7.4-10.4); MONOCYTES % 7.8 % (2.0-8.0); NEUTROPHILS % 56.3 % (40.0-76.0); PLATELET 66 x1000/uL (130-400); RED BLOOD CELL COUNT 3.68 mill/uL (4.7-6.1); RED CELL DISTRIBUTION WIDTH 13.7 % (11.6-14.6)
[2024-02-12 07:23] LABS: CREATININE 0.6 mg/dL (0.6-1.3); GLUCOSE 81 mg/dL (70-105); UREA NITROGEN BLOOD 9 mg/dL (9-23)
[2024-02-12 07:24] LABS: ALANINE AMINOTRANSFERASE 16 IU/L (10-49); ALBUMIN 3.7 g/dL (3.2-4.8); AMMONIA 48 uMol/L (<32); ASPARTATE AMINOTRANSFERASE 27 IU/L (<34)
[2024-02-12 07:25] LABS: BILIRUBIN TOTAL 1.4 mg/dL (0.1-1.0); PROTEIN TOTAL 6.4 g/dL (6.0-8.3)
[2024-02-12 07:57] VITALS: BP 132/61; PULSE 70; RESP 18; TEMP 36.50292; O2SAT 99
[2024-02-12] MEDS: POTASSIUM CHLORIDE 20MEQ TABLET SR PO NR (15:40)
[2024-02-12 20:00] VITALS: BP 134/76; PULSE 78; RESP 18; TEMP 36.89184; O2SAT 100
[2024-02-12] MEDS: RISPERIDONE 1MG TABLET PO SCH (21:02)
[2024-02-12] MEDS: ALPRAZOLAM 0.25 MG TABLET PO PRN (21:07)
[2024-02-13 07:40] LABS: CHLORIDE 113 mEq/L (98-107); POTASSIUM 3.2 mEq/L (3.5-5.1); SODIUM 142 mEq/L (136-145)
[2024-02-13 07:41] LABS: CALCIUM 8.9 mg/dL (8.7-10.4); CARBON DIOXIDE 21 mEq/L (21-32)
[2024-02-13 07:46] LABS: CREATININE 0.6 mg/dL (0.6-1.3); GLUCOSE 85 mg/dL (70-105); UREA NITROGEN BLOOD 11 mg/dL (9-23)
[2024-02-13 08:00] VITALS: BP 115/68; PULSE 66; RESP 18; TEMP 36.72516; O2SAT 97
[2024-02-13 20:00] VITALS: BP 137/78; PULSE 79; RESP 18; TEMP 36.6696; O2SAT 96
[2024-02-13] MEDS: POTASSIUM CHLORIDE 20MEQ TABLET SR PO NR (21:12)
[2024-02-13] MEDS: TAMSULOSIN HCL 0.4MG SR CAPSULE PO SCH (23:49)
[2024-02-14 06:13] LABS: CALCIUM 8.8 mg/dL (8.7-10.4); CARBON DIOXIDE 21 mEq/L (21-32); CHLORIDE 110 mEq/L (98-107); POTASSIUM 3.3 mEq/L (3.5-5.1); SODIUM 142 mEq/L (136-145)
[2024-02-14 06:19] LABS: CREATININE 0.6 mg/dL (0.6-1.3); GLUCOSE 94 mg/dL (70-105); UREA NITROGEN BLOOD 10 mg/dL (9-23)
[2024-02-14 08:00] VITALS: BP 119/68; PULSE 77; RESP 19; TEMP 37.72524; O2SAT 99
[2024-02-14] MEDS: POTASSIUM CHLORIDE 20MEQ TABLET SR PO NR (16:03)
[2024-02-14 20:00] VITALS: BP 131/71; PULSE 84; RESP 18; TEMP 36.89184; O2SAT 98
[2024-02-15 07:17] LABS: CARBON DIOXIDE 22 mEq/L (21-32); CHLORIDE 111 mEq/L (98-107); POTASSIUM 3.6 mEq/L (3.5-5.1); SODIUM 143 mEq/L (136-145)
[2024-02-15 07:18] LABS: CALCIUM 8.8 mg/dL (8.7-10.4)
[2024-02-15 07:22] LABS: CREATININE 0.5 mg/dL (0.6-1.3); GLUCOSE 80 mg/dL (70-105)
[2024-02-15 07:41] LABS: UREA NITROGEN BLOOD < 5 mg/dL (9-23)
[2024-02-15 08:00] VITALS: BP 126/58; PULSE 75; RESP 20; TEMP 36.89184; O2SAT 75
[2024-02-15 20:00] VITALS: BP 141/66; PULSE 80; RESP 18; TEMP 36.9474; O2SAT 98
[2024-02-16 08:45] VITALS: BP 126/79; PULSE 94; RESP 18; TEMP 36.61404; O2SAT 97
[2024-02-16] MEDS: FLUOXETINE HCL 10 MG CAPSULE PO SCH (10:39)
[2024-02-16] MEDS: ONDANSETRON HCL 4MG TABLET PO PRN (18:48)
[2024-02-16 20:00] VITALS: BP 117/61; PULSE 91; RESP 18; TEMP 37.00296; O2SAT 99
[2024-02-17 08:00] VITALS: BP 121/70; PULSE 89; RESP 18; TEMP 36.89184; O2SAT 98
[2024-02-17] MEDS: ALPRAZOLAM 0.25 MG TABLET PO PRN (18:05)
[2024-02-17 20:00] VITALS: BP 134/69; PULSE 80; RESP 18; TEMP 36.50292; O2SAT 98
[2024-02-18 05:56] LABS: CHLORIDE 109 mEq/L (98-107); POTASSIUM 3.2 mEq/L (3.5-5.1); SODIUM 142 mEq/L (136-145)
[2024-02-18 05:57] LABS: CARBON DIOXIDE 24 mEq/L (21-32)
[2024-02-18 06:01] LABS: ALANINE AMINOTRANSFERASE 11 IU/L (10-49)
[2024-02-18 06:02] LABS: ASPARTATE AMINOTRANSFERASE 19 IU/L (<34); CREATININE 0.5 mg/dL (0.6-1.3); GLUCOSE 94 mg/dL (70-105); UREA NITROGEN BLOOD 9 mg/dL (9-23)
[2024-02-18 06:03] LABS: ALBUMIN 3.5 g/dL (3.2-4.8)
[2024-02-18 06:04] LABS: BILIRUBIN TOTAL 1.8 mg/dL (0.1-1.0); PROTEIN TOTAL 6.2 g/dL (6.0-8.3)
[2024-02-18 06:10] LABS: AMMONIA 75 uMol/L (<32)
[2024-02-18 07:16] LABS: BASOPHILS % 0.9 % (0.0-2.0); EOSINOPHILS % 4.3 % (0.0-5.0); HEMATOCRIT. 31.3 % (42.0-52.0); LYMPHOCYTES % 24.6 % (20.0-50.0); MEAN CORPUSCULAR HEMOGLOBIN 34.1 pg (28.0-32.0); MEAN CORPUSCULAR VOLUME 97.4 fL (80.0-94.0); MEAN PLATELET VOLUME 8.5 fl (7.4-10.4); MONOCYTES % 7.7 % (2.0-8.0); NEUTROPHILS % 62.5 % (40.0-76.0); PLATELET 63 x1000/uL (130-400); RED BLOOD CELL COUNT 3.22 mill/uL (4.7-6.1); RED CELL DISTRIBUTION WIDTH 13.3 % (11.6-14.6); WHITE BLOOD COUNT 4.4 x1000/uL (4.5-11.0)
[2024-02-18 08:00] VITALS: BP 129/77; PULSE 72; RESP 20; TEMP 36.114; O2SAT 98
[2024-02-18] MEDS: POTASSIUM CHLORIDE 20MEQ TABLET SR PO NR (15:32)
[2024-02-18 20:00] VITALS: BP 127/71; PULSE 84; RESP 18; TEMP 37.72524; O2SAT 97
[2024-02-19 07:25] LABS: CARBON DIOXIDE 24 mEq/L (21-32); CHLORIDE 109 mEq/L (98-107); POTASSIUM 3.5 mEq/L (3.5-5.1); SODIUM 142 mEq/L (136-145)
[2024-02-19 07:31] LABS: CREATININE 0.6 mg/dL (0.6-1.3); GLUCOSE 87 mg/dL (70-105); UREA NITROGEN BLOOD 8 mg/dL (9-23)
[2024-02-19 08:00] VITALS: BP 134/73; PULSE 82; RESP 17; TEMP 37.00296; O2SAT 98
[2024-02-19 20:00] VITALS: BP 107/63; PULSE 93; RESP 19; TEMP 36.89184; O2SAT 97
[2024-02-20 09:02] VITALS: BP 127/68; PULSE 89; RESP 18; TEMP 36.89184; O2SAT 99
[2024-02-20 12:20] VITALS: BP 127/68; PULSE 89; TEMP 98.4; O2SAT 99
== END 2024-02-20 14:20 | DRG 64 ==
LOC: UNDOADMIN 22:24
PROVIDERS: ADMIT Physical Medicine & Rehabilitation Spinal Cord Injury Medicine; ATTEND Internal Medicine Nephrology
PROC: GZ51ZZZ Individual Psychotherapy, Behavioral (ICD-10-PCS; principal; 2024-02-06)
DX: I63.9 Cerebral infarction, unspecified (principal); G82.50 Quadriplegia, unspecified; K92.1 Melena; E72.20 Disorder of urea cycle metabolism, unspecified; R18.8 Other ascites; I10 Essential (primary) hypertension; K76.82 Hepatic encephalopathy; K74.60 Unspecified cirrhosis of liver; K80.20 Calculus of gallbladder without cholecystitis without obstruction; M48.061 Spinal stenosis, lumbar region without neurogenic claudication; F10.10 Alcohol abuse, uncomplicated; D69.6 Thrombocytopenia, unspecified; D63.8 Anemia in other chronic diseases classified elsewhere; F01.50 Vascular dementia, unspecified severity, without behavioral disturbance, psychotic disturbance, mood disturbance, and anxiety; N40.1 Benign prostatic hyperplasia with lower urinary tract symptoms; E87.6 Hypokalemia; M48.02 Spinal stenosis, cervical region; R53.81 Other malaise; R33.8 Other retention of urine; R26.9 Unspecified abnormalities of gait and mobility; E78.00 Pure hypercholesterolemia, unspecified; Z60.2 Problems related to living alone; Z51.89 Encounter for other specified aftercare; Z79.82 Long term (current) use of aspirin; Z79.02 Long term (current) use of antithrombotics/antiplatelets; Z86.73 Personal history of transient ischemic attack (TIA), and cerebral infarction without residual deficits; Z91.81 History of falling; Z85.05 Personal history of malignant neoplasm of liver; Z91.041 Radiographic dye allergy status; Z92.21 Personal history of antineoplastic chemotherapy
CPT/HCPCS: 36415; 76700; 78278; 80048; 80053; 81003; 82107; 82140; 82270; 82306; 82607; 82728; 82746; 82962; 83036; 83540; 83550; 83735; 84134; 84153; 84443; 85025; 85044; 86705; 87340; 92523; 92610; 93970; 97110; 97112; 97116; 97150; 97162; 97167; 97530; 97535; 97542; A4565; A6261; A9560; J2060; J2354; J2470; J7050; Q0162

== ENCOUNTER 2024-04-27 12:33 | Emergency (ER) | payer MEDICARE, MEDICAID ==
[~2024-04-27] VITALS: Ht 182.9 cm; Wt 100.0 kg
[2024-04-27 12:37] VITALS: O2SAT 98
[2024-04-27 13:50] LABS: BASOPHILS % 0.8 % (0.0-2.0); EOSINOPHILS % 3.5 % (0.0-5.0); HEMATOCRIT. 35.2 % (42.0-52.0); HEMOGLOBIN. 12.3 g/dL (14.0-18.0); MEAN CORPUSCULAR HEMOGLOBIN 33.7 pg (28.0-32.0); MEAN CORPUSCULAR HGB CONC 34.8 g/dL (31.0-37.0); MEAN CORPUSCULAR VOLUME 96.9 fL (80.0-94.0); MEAN PLATELET VOLUME 7.6 fl (7.4-10.4); NEUTROPHILS % 71.7 % (40.0-76.0); PLATELET 126 x1000/uL (130-400); RED BLOOD CELL COUNT 3.63 mill/uL (4.7-6.1); RED CELL DISTRIBUTION WIDTH 13.6 % (11.6-14.6); WHITE BLOOD COUNT 5.6 x1000/uL (4.5-11.0)
[2024-04-27 13:55] LABS: CHLORIDE 109 mEq/L (98-107); POTASSIUM 3.5 mEq/L (3.5-5.1); SODIUM 137 mEq/L (136-145)
[2024-04-27 13:56] LABS: CALCIUM 8.5 mg/dL (8.7-10.4); CARBON DIOXIDE 20 mEq/L (21-32)
[2024-04-27 14:01] LABS: CREATININE 0.6 mg/dL (0.6-1.3); GLUCOSE 106 mg/dL (70-105); UREA NITROGEN BLOOD 9 mg/dL (9-23)
[2024-04-27 16:20] VITALS: BP 136/73; PULSE 72; RESP 15; TEMP 36.66960; O2SAT 99
== END 2024-04-27 18:10 | disposition home or self-care (01) ==
LOC: ER 12:49
DX: M79.672 Pain in left foot (principal); E78.00 Pure hypercholesterolemia, unspecified; I10 Essential (primary) hypertension; Z86.73 Personal history of transient ischemic attack (TIA), and cerebral infarction without residual deficits; Z79.899 Other long term (current) drug therapy; Z85.05 Personal history of malignant neoplasm of liver
CPT/HCPCS: 36415; 73630; 80048; 85025; 99284